=== PATIENT | male | born 1965 | race American Indian/Alaskan Native ===

== ENCOUNTER 2021-03-26 10:15 | Outpatient (CLI) | payer OTHER ==
--- NOTE | 2021-03-26 11:44 | XRay Report ---
Left hip 2 views INDICATION: Left hip pain IMPRESSION: The left hip arthroplasty appears intact. There is exuberant heterotopic ossification fernando ntified along the left acetabulum and the left greater trochanter. There is a healing fracture identi fied involving the left inferior pubic ramus. Signer Name: Arnold Clark MD Signed: 03/26/2021 11:39 AM Workstation Name: [email or web address]
--- NOTE | 2021-03-26 11:45 | XRay Report ---
Bilateral knees 5 views INDICATION: Bilateral knee pain IMPRESSION: There is a healing fracture identified involving the distal right femoral metaphysis with extensive external and internal callus formation. The fixation plate hardware appears grossly intact . There is mild degenerative changes involving the right knee joint. Healed proximal fibular fracture noted. The left knee is osteopenic but grossly intact with only mild tricompartmental degenerative changes. Signer Name: Arnold Clark MD Signed: 03/26/2021 11:40 AM Workstation Name: [id number]
== END 2021-03-26 10:16 | disposition home or self-care (01) ==
LOC: XRAY 10:15
PROVIDERS: ATTEND Internal Medicine
DX: S72.491D Other fracture of lower end of right femur, subsequent encounter for closed fracture with routine healing (principal); M17.0 Bilateral primary osteoarthritis of knee; L84 Corns and callosities; M85.88 Other specified disorders of bone density and structure, other site; X58.XXXD Exposure to other specified factors, subsequent encounter